=== PATIENT | female | born 1980 | race Caucasian/White ===

== ENCOUNTER 2016-04-12 15:38 | Emergency (ER) | payer OTHER ==
[2016-04-12 15:57] VITALS: BP 123/78; PULSE 73; RESP 16; O2SAT 99
--- NOTE | 2016-04-12 17:01 | DRSVH ---
PROCEDURE: X-RAY RIGHT RIBS INCLUDEING PA CHEST, MINUMUM THREE VIEWS ([id number]) INDICATIONS: injury, pain TECHNIQUE: 2 views of the right ribs were acquired, along with a single view chest. COMPARISON: None. FINDINGS: Surgical changes and devices: None. Bones and chest wall: No displaced rib fractures. No suspicious bony lesions. Overlying soft tissu es appear unremarkable. Lungs and pleura: No pleural effusions or pneumothorax. Lungs appear clear. Mediastinum: Mediastinal contours appear normal. Heart size is normal. IMPRESSION: 1. No displaced rib fractures. Dictated by: Ignacio Riley M.D. on 04/12/2016 at 16:59 Approved by: Ignacio Riley M.D. on 04/12/2016 at 16:59
--- NOTE | 2016-04-12 19:24 | ED.REPORT ---
HPI-Chest Pain Under 40 Date of Service Apr 12, 2016 ED Provider: Calvin Escobar MD Pt is a 35 y/o female presenting to the ED c/o right lower anterior rib pain onset 4 days ago. Pt was diagnosed with bronchitis 1 month ago and was placed on antibiotics Mar 27. Her cough has persisted and today she coughed and felt a snapping sensation. She denies fever, chills, nausea, vomiting, severe SOB. Pt denies recent surgeries, periods of immobilization, hx of PE or DVT. Nursing Notes Stated Complaint: POSS BROKEN RIB Chief Complaint: Chest Pain-Non Cardiac Nature Nursing Notes Reviewed: Yes Allergies: Coded Allergies: Sulfa (Sulfonamide Antibiotics) (Verified Allergy, Severe, RASH, 04/12/16) latex (Verified Allergy, Severe, RASH & HEADACHE, 04/12/16) morphine (Verified Allergy, Intermediate, rash, short of breath, 04/12/16) shellfish derived (Verified Allergy, Intermediate, rash, 04/12/16) TAPE (Verified Adverse Reaction, Mild, RASH, 04/12/16) Uncoded Allergies: KIWI (Allergy, Unknown, 08/01/07) MUSHROOMS (Allergy, Unknown, 08/01/07) SHELL FISH (Allergy, Unknown, 06/07/14) CHAMOMILE (Adverse Reaction, Unknown, 08/01/07) Scheduled Azithromycin (Zithromax (Z-Lucio)) 250 Mg Tablet 250 MG PO DIRECTED Take two tablets by mouth on day 1, then take one tablet daily on days 2 through 5. Promethazine DM Syrup (Promethazine DM Syrup) 118 Ml Syrup 5 ML PO HS General Time Seen by MD: 19:22 Chief Complaint Chest pain Hx Obtained From: Patient Arrived By: Walk-in Sudden in Onset?: No Onset Occurred: 4 days ago Symptom Duration: Since onset Location: : Chest right Quality: Painful, Pleuritic, Sharp Severity: Current: Mild Severity: Maximum: Moderate Risk Factors PERC Rule PERC Result: PERC rule satisfied Past Medical History Past Medical History Hx Bronchitis Hypothyroid TMJ disease Anxiety Past Surgical History Sinus Removal of extra thumb Smoking History Never Smoker Ambulatory Status Independent Review of Systems Constitutional: Denies: Chills, Fever Respiratory: Reports: Non-productive cough, Pleuritic pain, Denies: Shortness of breath Cardiovascular: Reports: Chest pain Complete sys rev & neg: except as marked. Physical Exam Initial Vital Signs Vital Signs (First) Date Time Temp Pulse Resp B/P Pulse Ox O2 Delivery O2 Flow Rate FiO2 04/12/16 15:57 36.2 73 16 123/78 99 Room Air Initial VS: Reviewed, Vital signs normal Head / Eyes: Atraumatic, Normocephalic, PERRL ENT: Mucous membranes moist, Conjunctiva normal, No scleral icterus Neck: Supple, Full range of motion Abdomen / GI: Soft, Non-tender Extremities: Vascular intact, Neuro intact, No swelling, No tenderness Skin: Warm, Dry, No cyanosis Neurologic: Alert, Oriented, Nonfocal Psychiatric: Mood/affect normal, Behavior normal, Normal thought content General/Constitutional: Awake, Alert, No acute distress, Cooperative, Not toxic appearing Respiratory / Chest: Atraumatic, Breath sounds NL, Breath sounds = bilat, No respiratory distress, No rales, No rhonchi, No wheezing, No retractions, No stridor, No chest wall deformity, No crepitus Mild right low chest wall tenderness Cardiovascular: Heart rate NL, Regular rhythm, Heart sounds NL, No gallop, No murmurs, No rubs, Cap refill not delayed, Peripheral circulation NL Interpretation & Diagnostics X-Ray Interpretation Xray Interpretation: IMPRESSION: 1. No displaced rib fractures. Dictated by: Ignacio Riley M.D. on 04/12/2016 at 16:59 Approved by: Ignacio Riley M.D. on 04/12/2016 at 16:59 Study Performed: R ribs Interpretation / Wet Read by: Interpret - Radiologist Re-Eval/Medical Decision Med Decision/Clinical Course 35-year-old female presenting with right anterior rib pain 4 days. Cough 1 month. Rib films and chest x-ray clear. Vital signs stable. Right anterior rib tenderness reproducible. PERC negative. Will treat for bronchitis with azithromycin and cough suppressant. Recommend NSAIDs for costochondritis. Return precautions given. Re-Evaluation/Progress : Time of Eval: 19:36 Re-Evaluation/Progress Note: Pt rechecked. Informed pt of plan for treatment. Pt understands and agrees with plan for treatment. F/U instructions and RTER warnings given. All questions addressed. Counseled Regarding: Diagnosis, Need for follow-up, When/why to return to ED Discharge & Departure Primary Impression: Bronchitis Additional Impression: Non-cardiac chest pain Disposition: Home Discharge Condition All VS Reviewed: Yes Condition: Stable Patient Instructions: Chest Pain (ED) Additional Instructions: The rib x-ray today showed no signs of fracture. Your pain is likely related to your persistent coughing caused by bronchitis. Take the Z-pack as directed. Take the cough syrup as needed. Do not drive while taking the cough syrup. Return to the emergency department for severe pain, shortness of breath, nausea , vomiting, high fever, or other concerning symptoms. Follow-up with your primary care doctor in 2 days. Referrals: Chelo Castillo (PCP) Scribe Attestation Portions of this note were transcribed by Bharath Javier. I, Dr. Escobar, personally performed the history, physical exam and medical decision-making; I reviewed and confirmed the accuracy of the information in the transcribed note. Signed by Efra Coleman, 04/12/16 - 0 copies to: Chelo Castillo Ben M MD Apr 12, 2016 19:24 BHARATH JAVIER Apr 12, 2016 19:36
[2016-04-12] MEDS ORDERED: AZIT250T4 PO (19:32)
[2016-04-12] MEDS ORDERED: D-ME118S8 PO (19:32)
== END 2016-04-12 19:47 | disposition home or self-care (01) ==
LOC: SED 15:39
DX: J40 Bronchitis, not specified as acute or chronic (principal); R07.89 Other chest pain; E03.9 Hypothyroidism, unspecified; Z88.2 Allergy status to sulfonamides; Z88.5 Allergy status to narcotic agent; Z88.8 Allergy status to other drugs, medicaments and biological substances; Z91.040 Latex allergy status; Z91.013 Allergy to seafood